=== PATIENT | male | born 1990 | race Caucasian/White ===

== ENCOUNTER 2017-12-02 10:40 | Emergency (ER) | payer SELFPAY, OTHER ==
[2017-12-02] MEDS: AZITHROMYCIN 250 MG TAB PO (13:34)
[2017-12-02] MEDS: CEFTRIAXONE 250 MG INJ IM (13:35)
== END 2017-12-02 14:27 | disposition home or self-care (01) ==
LOC: FTE 10:40
DX: Z20.2 Contact with and (suspected) exposure to infections with a predominantly sexual mode of transmission (principal)
CPT/HCPCS: 87591; 96372; 99284-25